=== PATIENT | female | born 2000 | race Caucasian/White ===

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

== ENCOUNTER 2019-02-02 11:43 | Emergency (ER) | payer OTHER ==
[2019-02-02 11:48] VITALS: PULSE 91
[2019-02-02] MEDS ORDERED: KETOROLAC 30 MG/ML 1 ML VIAL IVP STA (12:19)
--- NOTE | 2019-02-02 12:24 | ED ---
Female Urogenital HPI - General Chief complaint: Vaginal Bleeding Stated complaint: Ovarian pain, vaginal bleeding Time Seen by Provider: 02/02/19 11:56 Source: patient, RN notes reviewed, old records reviewed Mode of arrival: ambulatory Limitations: no limitations - History of Present Illness Initial comments: Patient is a 18-year-old female presents emergency from us today for evaluation for lower abdominal and back pain after intercourse. Patient states that she noticed some brown vaginal discharge and minor bleeding since that time as well. She states she's been having some abnormal discharge for the past 2 weeks. Patient states she is not on hormonal control at this time. She states she did take her test which was negative. She states she's had some pains such as this intermittently for the past year but has not followed up with [facility]. Patient states that she has no fevers or chills. She denies dysuria. Patient states that she denies any significant chance of sexual transmitted infections time she's been with 1 partner. - Related Data Home Medications Medication Instructions Recorded Confirmed Atomoxetine HCl [Strattera] 25 mg PO DAILY 11/20/17 11/20/17 Previous Rx's Medication Instructions Recorded Ibuprofen 400 mg PO TID #20 tablet 02/02/19 Allergies Allergy/AdvReac Type Severity Reaction Status Date / Time azithromycin [From Zithromax] Allergy Unknown Verified 02/02/19 11:48 Childhood cefixime [From Suprax] Allergy Unknown Verified 02/02/19 11:48 Childhood ceftriaxone [From Rocephin] Allergy Unknown Verified 02/02/19 11:48 Childhood Review of Systems ROS Statement: Those systems with pertinent positive or pertinent negative responses have been documented in the HPI. ROS Other: All systems not noted in ROS Statement are negative. Past Medical History Past Medical History: Asthma History of Any Multi-Drug Resistant Organisms: None Reported Past Surgical History: No Surgical Hx Reported Past Psychological History: Depression Smoking Status: Current every day smoker Past Alcohol Use History: Occasional Past Drug Use History: Marijuana General Exam - General Exam Comments Initial Comments: His is a 18-year-old female. Alert and oriented 3. Patient appears in no significant distress. Limitations: no limitations General appearance: alert, in no apparent distress Head exam: Present: atraumatic Eye exam: Present: normal appearance, PERRL, EOMI. Absent: scleral icterus, conjunctival injection, periorbital swelling ENT exam: Present: normal exam, mucous membranes moist Neck exam: Present: normal inspection. Absent: tenderness, meningismus, lymphadenopathy Respiratory exam: Present: normal lung sounds bilaterally. Absent: respiratory distress, wheezes, rales, rhonchi, stridor Cardiovascular Exam: Present: regular rate, normal rhythm, normal heart sounds. Absent: systolic murmur, diastolic murmur, rubs, gallop, clicks GI/Abdominal exam: Present: soft, normal bowel sounds. Absent: distended, tenderness, guarding, rebound, rigid External exam: Present: normal external exam Speculum exam: Present: vaginal discharge, vaginal bleeding (Brown, old blood appearing vaginal discharge.) By manual exam: Present: adnexal mass (Patient is right adnexal tenderness.). Absent: normal by manual exam Extremities exam: Present: normal inspection, full ROM, normal capillary refill. Absent: tenderness, pedal edema, joint swelling, calf tenderness Back exam: Present: normal inspection Neurological exam: Present: alert, oriented X3, CN II-XII intact Psychiatric exam: Present: normal affect, normal mood Course Vital Signs 02/02/19 11:44 Temperature 97.9 F Pulse Rate 91 Respiratory 18 Rate Blood Pressure 122/79 O2 Sat by Pulse 98 Oximetry Medical Decision Making - Medical Decision Making is a 18-year-old female presents emergency department today for evaluation for lower pelvic pain, abnormal vaginal bleeding, and brown discharge. She reports symptoms started after intercourse last night. In this time Patient has some mild right adnexal tenderness. She has no fever and sensitivity. Urinalysis is negative for infection negative for test. Trichomonas is negative. We sent chlamydia and gonorrhea testing. Inform Patient and her protection at this time. Ultrasound was completed and shows some free fluid over the right adnexa. Discussed likely ruptured ovarian cyst. Given referral for [facility]. Discussed Motrin Tylenol for pain relief. - Lab Data Lab Results 02/02/19 02/02/19 02/02/19 Range/Units 12:30 12:30 12:30 Urine Color Yellow Urine Appearance Clear (Clear) Urine pH 7.0 (5.0-8.0) Ur Specific [place] 1.026 (1.001-1.035) Urine Protein Trace H (Negative) Urine Glucose (UA) Negative (Negative) Urine Ketones Negative (Negative) Urine Blood Small H (Negative) Urine Nitrite Negative (Negative) Urine Bilirubin Negative (Negative) Urine Urobilinogen <2.0 (<2.0) mg/dL Ur Leukocyte Esterase Negative (Negative) Urine RBC 1 (0-5) /hpf Urine WBC 1 (0-5) /hpf Ur Squamous Epith Cells 1 (0-4) /hpf Urine Mucus Occasional H (None) /hpf Urine HCG, Qual Not Detected (Not Detectd) Trichomonas Ag (Rapid) Negative (Negative) - Radiology Data Radiology results: report reviewed Right ovary shows multiple follicles left ovary shows multiple follicles. Evidence of nabothian cysts on cervix. No signs of ovarian torsion. There is some mild free fluid visualized in the right adnexa. Disposition Clinical Impression: Pelvic pain, Ovarian follicular cyst Disposition: HOME SELF-CARE Condition: Good Instructions (If sedation given, give patient instructions): Ruptured Ovarian Cyst (ED) Additional Instructions: Please use medication as discussed. Please follow up with family doctor if symptoms have not improved over the next two days. Please return to the emergency room if your symptoms increase or worsen or for any other concerns. Prescriptions: Ibuprofen 400 mg PO TID #20 tablet Is patient prescribed a controlled substance at d/c from ED?: No Referrals: Bhumi Mccall MD [Primary Care Provider] - 1-2 days Amy Pascal DO [Doctor of Osteopathic Medicine] - 1-2 days Time of Disposition: 13:25
[2019-02-02 12:49] LABS: Appearance,Urine Clear (Clear); Bilirubin,Urine Negative (Negative); Blood,Urine Small (Negative); Color,Urine Yellow; Glucose,Urine (UA) Negative (Negative); Ketones,Urine Negative (Negative); Leukocyte Esterase,Urine Negative (Negative); Mucus,Urine Occasional /hpf; Nitrite,Urine Negative (Negative); Protein,Urine Trace (Negative); RBC,Urine 1 /hpf (0-5); Specific Gravity,Urine 1.026 (1.001-1.035); Squamous Epithelial Cell,Urine 1 /hpf (0-4); Urobilinogen,Urine <2.0 mg/dL (<2.0); WBC,Urine 1 /hpf (0-5)
[2019-02-02] MEDS ORDERED: KETOROLAC 30 MG/ML 1 ML VIAL IM STA (13:00)
--- NOTE | 2019-02-02 13:13 | US ---
EXAMINATION TYPE: US transvaginal DATE OF EXAM: 02/02/2019 COMPARISON: Previous study dated 11/20/2017. CLINICAL HISTORY: pain. Pelvic pain, irregular menses TECHNIQUE: Transvaginal (TV). Date of LMP: 01/16/2019 EXAM MEASUREMENTS: Uterus: 7.3 x 4.3 x 3.2 cm cm Endometrial Stripe: 0.3 cm Right Ovary: 3.0 x 1.7 x 1.4 cm Left Ovary: 3.2 x 1.9 x 2.2 cm 1. Uterus: Anteverted No masses or lesions seen 2. Endometrium: wnl 3. Right Ovary: Multiple follicles 4. Left Ovary: Multiple follicles Spectral, color and waveform doppler imaging shows good arterial and venous flow within the ovaries ; there is no evidence for ovarian torsion. 5. Bilateral Adnexa: Free fluid visualized in right adnexa 6. Posterior cul-de-sac: no free fluid Cervix- single nabothian cyst IMPRESSION: NABOTHIAN CYSTS.
[2019-02-02] MEDS ORDERED: traMADol 50 MG STARTER PACK 3 TAB BTL PO STA (13:26)
[2019-02-02 13:41] VITALS: BP 132/78; RESP 16; TEMP 98.7
[2019-02-03 14:19] LABS: C. trachomatis,PCR Negative (Neg,Equiv); Chlamydia trachomatis Source Vagina; N. gonorrhoeae,PCR Negative (Neg,Equiv); Neisseria Source Vagina
== END 2019-02-02 13:40 | disposition home or self-care (01) ==
LOC: EC 11:43
DX: N83.01 Follicular cyst of right ovary (principal); N83.02 Follicular cyst of left ovary; F17.200 Nicotine dependence, unspecified, uncomplicated; Z79.899 Other long term (current) drug therapy; Z88.1 Allergy status to other antibiotic agents
CPT/HCPCS: 81001; 81025; 87808; 87491; 87591; 87070; 93975; 76830; 99284; 96372; J1885

== ENCOUNTER 2019-05-17 10:06 | Emergency (ER) | payer OTHER ==
[2019-05-17 10:11] VITALS: BP 131/83; PULSE 68; RESP 18; TEMP 98.2
--- NOTE | 2019-05-17 10:33 | ED ---
Upper Extremity HPI - General Chief Complaint: Extremity Injury, Upper Stated Complaint: numbness in hands and feet Time Seen by Provider: 05/17/19 10:12 Source: patient Mode of arrival: ambulatory Limitations: no limitations - History of Present Illness Initial Comments: 18-year-old female presenting today for chief complaint of blue coloration of hands feet that occurred yesterday as well as tingling sensation. Patient states that yesterday after going from a truck inside of [employer] she noticed a discoloration or hands bruising patient color. Patient states that there is slightly tingling and burning. Patient states it was cold outside the states this persisted into dinner. Patient denied any headache dizziness nausea vomiting visual changes B changes because of the upper or lower extremity or paresthesias of the arm. Patient denied any chest pain or shortness of breath. Patient denies any known cardiac issues, states he has no PMH. Patient denies known history of raynauds. Patient states she had a similar sensation in her thumb approximately 3-4 days ago and though it looked discolored. Patient denies neck pain or injury. 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 Patient denies urinary retention, loss of bowel bladder control, vaginal or perineal numbness. Patient appears well on arrival, VS WNL she appears well no acute distress. No current symptoms aside from dull ache in low back. - Related Data Home Medications Medication Instructions Recorded Confirmed Atomoxetine HCl [Strattera] 25 mg PO DAILY 11/20/17 11/20/17 Previous Rx's Medication Instructions Recorded Ibuprofen 400 mg PO TID #20 tablet 02/02/19 Allergies Allergy/AdvReac Type Severity Reaction Status Date / Time azithromycin [From Zithromax] Allergy Unknown Verified 05/17/19 10:07 Childhood cefixime [From Suprax] Allergy Unknown Verified 05/17/19 10:07 Childhood ceftriaxone [From Rocephin] Allergy Unknown Verified 05/17/19 10:07 Childhood Review of Systems ROS Statement: Those systems with pertinent positive or pertinent negative responses have been documented in the HPI. ROS Other: All systems not noted in ROS Statement are negative. Past Medical History Past Medical History: Asthma History of Any Multi-Drug Resistant Organisms: None Reported Past Surgical History: No Surgical Hx Reported Past Psychological History: Anxiety, Depression Smoking Status: Current every day smoker Past Alcohol Use History: Occasional Past Drug Use History: None Reported General Exam - General Exam Comments Initial Comments: General: The patient is awake and alert, in no distress, and does not appear acutely ill. Eye: +3 mm pupils are equal, round and reactive to light, extra-ocular movements are intact. No nystagmus. There is normal conjunctiva bilaterally. No signs of icterus. Ears, nose, mouth and throat: There are moist mucous membranes and no oral lesions. Neck: The neck is supple, there is no tenderness or JVD. Cardiovascular: There is a regular rate and rhythm. No murmur, rub or gallop is appreciated. Respiratory: Lungs are clear to auscultation, respirations are non-labored, breath sounds are equal. No wheezes, stridor, rales, or rhonchi. Musculoskeletal: Normal inspection of the hands and feet, no swelling, no discoloration, redness or pallor. Full ROM no tenderness. Capillary refill < 3 seconds.Strength 5/5 of the UE and LE b/l. Sensation intact of the UE and LE b/l including the hands and feet. Radial and DP pulses equal bilaterally 2+. Neurological: A&O x 3. CN II-XII intact, There are no obvious motor or sensory deficits. Coordination appears grossly intact. Speech is normal. Skin: Skin is warm and dry and no rashes or lesions are noted. Psychiatric: Cooperative, appropriate mood & affect, normal judgment. Limitations: no limitations Course Vital Signs 05/17/19 10:08 Temperature 98.2 F Pulse Rate 68 Respiratory 18 Rate Blood Pressure 131/83 O2 Sat by Pulse 100 Oximetry Medical Decision Making - Medical Decision Making 18-year-old female presenting today for chief complaint of low back pain with additional complaints of blueness discoloration yesterday with tingling of hands and feet after exposure to cold. Patient has no discoloration on exam. Normal peripheral vascular and neurological exam, no sensation deficits or numbness. Patient also complaining of back pain that has been going on for weeks, lifts heavy weights. No fever, cancer, IVDU, no loss of bowel bladder control, urinary retention. There is noted anterior wedging near L1. I discussed this with patient at this time, patient refrain from heavy lifting until she is followed by primary care provider as well as orthopedic spine. Discussed case presenting illness, exam, PMH with Dr. Dillard who is agreeable to w/u and discharge with strict return parameters which were discussed. Patient agreeable to care plan and discharge. Disposition Clinical Impression: Low back pain, Acrocyanosis, Wedging of vertebra Disposition: HOME SELF-CARE Condition: Good Instructions (If sedation given, give patient instructions): Low Back Strain (ED) Additional Instructions: Please use medication as discussed. Please follow-up with family doctor in the next 2 days, follow-up with Dr. Card as discussed. Please return to emergency room if the symptoms increase or worsen or for any other concerns. Is patient prescribed a controlled substance at d/c from ED?: No Referrals: Bhumi Mccall MD [Primary Care Provider] - 1-2 days Sasha Card DO [Doctor of Osteopathic Medicine] - 1-2 days Time of Disposition: 11:04
--- NOTE | 2019-05-17 10:46 | XR ---
Lumbar spine HISTORY: Low back pain 3 views of the lumbar spine Lumbar vertebral bodies show preserved height with the exception of some mild anterior wedging at the first lumbar segment, alignment, and bone mineralization. Loss of disc height noted lumbosacral junc tion, suspect there is rudimentary rib at T12, possibly only 4 nonrib bearing lumbar segments. Mild s rowena curvature. IMPRESSION: Mild anterior wedging L1. Numbering system as described. Correlate with plain film prior to any intervention. Possible underlying degenerative disc change. Lumbar MRI may be of benefit.
[2019-05-17] MEDS ORDERED: CYCLOBENZAPRINE 10MG STARTER 3 TAB BTL PO STA (11:01)
[2019-05-17] MEDS ORDERED: ACET/COD 300 MG/30 MG STARTER PACK 6 TAB BTL PO STA (11:01)
== END 2019-05-17 11:13 | disposition home or self-care (01) ==
LOC: EC 10:06
DX: I73.89 Other specified peripheral vascular diseases (principal); M48.56XA Collapsed vertebra, not elsewhere classified, lumbar region, initial encounter for fracture; F17.200 Nicotine dependence, unspecified, uncomplicated; Z79.899 Other long term (current) drug therapy; Z88.1 Allergy status to other antibiotic agents
CPT/HCPCS: 72100; 99284

== ENCOUNTER → 2020-05-02 | Outpatient (CLI) | payer OTHER ==
--- NOTE | 2020-05-02 17:32 | MR ---
EXAMINATION TYPE: MR lumbar spine wo con DATE OF EXAM: 05/02/2020 COMPARISON: Plain film 05/17/2019 HISTORY: Low back pain that goes into buttocks for 2 years. TECHNIQUE: Multiplanar, multisequence images of the lumbar spine were acquired. 4 lumbar segments noted as correlation with plain film L1-L2: Normal disc appearance without desiccation. No herniation, protrusion or disc bulging. No ca nal stenosis is present. Foramina are patent bilaterally. L2-L3: Normal disc appearance without desiccation. No herniation, protrusion or disc bulging. No ca nal stenosis is present. Foramina are patent bilaterally. L3-L4: Normal disc appearance without desiccation. No herniation, protrusion or disc bulging. No ca nal stenosis is present. Foramina are patent bilaterally. L4-S1: Normal disc appearance without desiccation. No herniation, protrusion or disc bulging. No ca nal stenosis is present. Foramina are patent bilaterally. Lumbar segments are intact. No paraspinal masses are identified. Conus medullaris has a normal appe arance. Lumbar vertebral bodies show preserved height, bone marrow signal, mild spinal curvature is p resent. Superior endplate at L1 shows Schmorl's node formation. IMPRESSION: No evident disc herniation. Mild spinal curvature. Suspect only 4 nonrib-bearing lumbar segments, cor relate with plain film prior to any intervention.
== END | disposition home or self-care (01) ==
LOC: RADMRIMAIN 11:38
PROVIDERS: ATTEND Internal Medicine
DX: M43.9 Deforming dorsopathy, unspecified (principal)
CPT/HCPCS: 72148